=== PATIENT | female | born 1985 | race Caucasian/White ===

== ENCOUNTER → 2016-12-02 | Outpatient (CLI) | payer MEDICARE, OTHER | LOC: LAB 12:24 | DX: Z32.01 Encounter for pregnancy test, result positive (principal) | CPT/HCPCS: 36415; 84702; 84703 ==

== ENCOUNTER → 2017-03-18 | Outpatient (CLI) | payer MEDICARE, OTHER | LOC: KOH-I 08:45 | DX: O26.892 Other specified pregnancy related conditions, second trimester (principal); Z3A.00 Weeks of gestation of pregnancy not specified | CPT/HCPCS: 76705 ==

== ENCOUNTER → 2020-08-31 | Outpatient (CLI) | payer MEDICARE, OTHER ==
[~2020-08-31] MED LIST: COLACE 100MG C100 MG PO; LODINE CAP 300300 MG PO; ZOFRAN ODT 4 MG4 MG PO
== END ==
LOC: LAB 12:13
DX: E03.9 Hypothyroidism, unspecified (principal)
CPT/HCPCS: 36415; 84443

== ENCOUNTER → 2020-09-15 | Outpatient (CLI) | payer MEDICARE, OTHER | LOC: LAB 13:26 | DX: Z32.00 Encounter for pregnancy test, result unknown (principal) | CPT/HCPCS: 36415; 84702 ==

== ENCOUNTER → 2020-09-17 | Outpatient (CLI) | payer MEDICARE, OTHER | LOC: LAB 08:16 | DX: Z32.00 Encounter for pregnancy test, result unknown (principal); O20.0 Threatened abortion | CPT/HCPCS: 36415; 84702 ==

== ENCOUNTER 2020-10-20 22:50 | Emergency (ER) | payer MEDICARE, OTHER | END 2020-10-21 01:25 | disposition left against medical advice (07) | LOC: ER1 22:50 | DX: Z53.21 Procedure and treatment not carried out due to patient leaving prior to being seen by health care provider (principal) ==

== ENCOUNTER 2020-10-21 10:33 | Emergency (ER) | payer MEDICARE, OTHER | END 2020-10-21 12:37 | disposition home or self-care (01) | LOC: ER1 10:33 | DX: O20.9 Hemorrhage in early pregnancy, unspecified (principal); Z88.8 Allergy status to other drugs, medicaments and biological substances; Z3A.11 11 weeks gestation of pregnancy | CPT/HCPCS: 81001; 99284 ==

== ENCOUNTER 2022-01-07 09:55 | Outpatient (CLI) | payer MEDICARE, OTHER | END 2022-01-07 12:39 | disposition home or self-care (01) | LOC: GENOP 09:55 | DX: O16.2 Unspecified maternal hypertension, second trimester (principal); O26.892 Other specified pregnancy related conditions, second trimester; H53.8 Other visual disturbances; Z3A.22 22 weeks gestation of pregnancy | CPT/HCPCS: 81001; 82962; G0463 ==

== ENCOUNTER → 2022-02-05 | Outpatient (CLI) | payer MEDICARE, OTHER ==
[~2022-02-05] VITALS: Ht 157.5 cm; Wt 93.0 kg
[~2022-02-05] MED LIST changes: +LEVOTHYROXINE75 MC1 PO; +PEPCID AC20 MG PO; +PHENERGAN 12.12.5 M1 PO
[2022-02-05 13:06] LABS: HEMOGLOBIN 12.2 gm/dl (12.3-15.3); RED BLOOD COUNT 4.2 M/UL (4.00-5.10); WHITE BLOOD COUNT 11.6 K/UL (4.5-11.0)
[2022-02-05 13:44] LABS: BUN/CREATININE RATIO 19 (0-10)
== END ==
LOC: GENOP 11:42
PROVIDERS: Obstetrics & Gynecology
DX: O21.0 Mild hyperemesis gravidarum (principal); Z3A.22 22 weeks gestation of pregnancy
CPT/HCPCS: 80053; 81001; 84439; 84443; 85025; 96360; 96361; 96367; J2405

== ENCOUNTER 2022-03-16 17:54 | Outpatient (CLI) | payer MEDICARE, OTHER | END 2022-03-16 20:08 | disposition home or self-care (01) | LOC: GENOP 17:54 | DX: O99.891 Other specified diseases and conditions complicating pregnancy (principal); M54.9 Dorsalgia, unspecified; O47.03 False labor before 37 completed weeks of gestation, third trimester; Z3A.32 32 weeks gestation of pregnancy | CPT/HCPCS: 81001; 84112; G0463 ==

== ENCOUNTER 2022-03-27 12:12 | Outpatient (CLI) | payer MEDICARE, OTHER | END 2022-03-27 14:00 | disposition home or self-care (01) | LOC: GENOP 12:12 | DX: O36.8120 Decreased fetal movements, second trimester, not applicable or unspecified (principal); O99.891 Other specified diseases and conditions complicating pregnancy; R73.9 Hyperglycemia, unspecified; Z3A.22 22 weeks gestation of pregnancy | CPT/HCPCS: 59025; 82962 ==